=== PATIENT | male | born 1980 | race Caucasian/White ===

== ENCOUNTER 2017-01-14 20:17 | Emergency (ER) | payer OTHER, SELFPAY ==
[2017-01-14] MEDS ORDERED: Acetaminophen 500 MG TAB ONE (20:54)
[2017-01-14] MEDS ORDERED: Ibuprofen 800 MG TAB ONE (20:54)
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
== END 2017-01-14 21:00 | disposition home or self-care (01) ==
LOC: MADERS 20:17
DX: S50.11XA Contusion of right forearm, initial encounter (principal); W19.XXXA Unspecified fall, initial encounter

== ENCOUNTER 2017-09-07 09:07 | Emergency (ER) | payer SELFPAY ==
[2017-09-07] MEDS ORDERED: Cephalexin 500 MG CAP ONE (09:50)
[2017-09-07] MEDS ORDERED: Sulfameth/Trimethoprim DS 800-160mg TAB ONE (09:50)
[2017-09-07] MEDS ORDERED: Adacel (T-DAP) 0.5 ML VIAL ONE (09:52)
--- NOTE | 2017-09-07 10:10 | RAD ---
3 VIEWS RIGHT FOOT: Date: 09/07/17 COMPARISON: None. HISTORY: Pain, no history of trauma. FINDINGS: No displaced fracture or evidence of dislocation seen. No radiopaque foreign body or subcutaneous gas . IMPRESSION: No acute findings. POS: [facility]
== END 2017-09-07 10:10 | disposition home or self-care (01) ==
LOC: MADERS 09:07
DX: L03.115 Cellulitis of right lower limb (principal); B35.3 Tinea pedis; F17.210 Nicotine dependence, cigarettes, uncomplicated
CPT/HCPCS: 36416; 90471; 90715

== ENCOUNTER 2018-01-23 16:14 | Emergency (ER) | payer SELFPAY ==
[2018-01-23] MEDS ORDERED: Ketorolac Tromethamine 30 MG/ML VIAL ONE (16:49)
--- NOTE | 2018-01-23 17:14 | RAD ---
THREE VIEWS OF THE LEFT ANKLE: 01/23/18 COMPARISON: None. HISTORY: Left ankle pain. FINDINGS: Three views of the left ankle shows no evidence of acute fracture or dislocation. Mild diffuse soft t issue swelling is seen. No degenerative changes are present. IMPRESSION: No evidence of acute osseous abnormality. POS: [facility]
== END 2018-01-23 18:12 | disposition short-term general hospital (02) ==
LOC: MADERS 16:14
DX: M79.89 Other specified soft tissue disorders (principal); F17.210 Nicotine dependence, cigarettes, uncomplicated
CPT/HCPCS: 96372; J1885

== ENCOUNTER 2018-10-14 21:56 | Emergency (ER) | payer SELFPAY ==
[2018-10-14] MEDS ORDERED: Sodium Chloride 0.9% 2,000 ML ONE (22:36)
[2018-10-14 22:41] LABS: Lactic Acid 16.7 mmol/L (0.5-2.2)
[2018-10-14 22:44] LABS: Prothrombin Time 13.4 SEC (12.0-14.7)
[2018-10-14] MEDS ORDERED: Cefepime 1 GM VIAL ONE (22:44)
[2018-10-14] MEDS ORDERED: Sodium Chloride 0.9% 100 ML ONE (22:44)
[2018-10-14 22:46] LABS: Hemoglobin 12.6 g/dL (14.0-18.0); Mean Corpuscular Volume 91.5 fL (78.0-98.0); Red Blood Cell (RBC) Count 4.43 mill/uL (4.70-6.10); White Blood Cell (WBC) Count 11.9 thou/uL (4.8-10.8)
[2018-10-14] MEDS ORDERED: Sodium Chloride 0.9% 1,000 ML ONE (22:46)
[2018-10-14 22:47] LABS: #Basophils 0.2 thou/uL (0.0-0.2); #Lymphocytes 4.4 thou/uL (1.20-3.40); #Monocytes 0.7 thou/uL (0.11-0.59); #Neutrophils 5.5 thou/uL (1.40-6.50); %Eosinophils 8.8 % (0.0-10.0); %Monocytes 6.1 % (0.0-10.0); %Neutrophils 46.1 % (42.0-75.0); Mean Corpuscular HGB CONC 31.1 g/dL (32.0-36.0); Mean Corpuscular Hemoglobin 28.5 pg (27.0-31.0); Mean Platelet Volume 6.4 fL (7.4-10.4); Platelet Count 261 thou/uL (130-400); RBC Distribution Width 13.3 % (11.5-14.5)
[2018-10-14 23:03] LABS: ALT (SGPT) 13 U/L (8-55); AST (SGOT) 11 U/L (5-34); Alkaline Phosphatase 84 U/L (40-150); Anion Gap 30 mmol/L (10-20); BUN (Urea Nitrogen) 19 mg/dL (8.9-20.6); Bilirubin, Total 0.3 mg/dL (0.2-1.2); Calc. Creatinine Clearance 0 mL/min (70-130); Calcium 8.3 mg/dL (7.8-10.44); Carbon Dioxide 9 mmol/L (22-29); Chloride 106 mmol/L (98-107); Estimated GFR-MDRD 49; Globulin 2.6 g/dL (2.4-3.5); Glucose 226 mg/dL (70-105); Potassium 3.9 mmol/L (3.5-5.1); Protein, Total 6.6 g/dL (6.0-8.3); Sodium 141 mmol/L (136-145)
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
== END 2018-10-14 22:50 | disposition short-term general hospital (02) ==
LOC: MADERS 21:56
DX: A41.9 Sepsis, unspecified organism (principal); I95.9 Hypotension, unspecified; R00.0 Tachycardia, unspecified; F17.210 Nicotine dependence, cigarettes, uncomplicated
CPT/HCPCS: 36430; 71045; 72170; 80053; 82330; 82435; 82550; 82803; 83605; 84132; 84295; 85025; 85610; 86850; 86900; 86901; 96360; 96374; G0390; J0692; J3490; J7050; P9016

== ENCOUNTER 2019-01-13 14:08 | Emergency (ER) | payer SELFPAY ==
[2019-01-13 15:17] LABS: #Basophils 0.1 thou/uL (0.0-0.2); #Eosinphils 0.6 thou/uL (0.0-0.7); #Lymphocytes 1.2 thou/uL (1.20-3.40); #Monocytes 0.7 thou/uL (0.11-0.59); #Neutrophils 5.8 thou/uL (1.40-6.50); %Basophils 1.6 % (0.0-1.0); %Eosinophils 7.3 % (0.0-10.0); %Lymphocytes 14.5 % (21.0-51.0); %Monocytes 8.3 % (0.0-10.0); %Neutrophils 68.3 % (42.0-75.0); Hemoglobin 12.6 g/dL (14.0-18.0); Mean Corpuscular HGB CONC 31.3 g/dL (32.0-36.0); Mean Corpuscular Hemoglobin 28.6 pg (27.0-31.0); Mean Corpuscular Volume 91.3 fL (78.0-98.0); Mean Platelet Volume 6.9 fL (7.4-10.4); Platelet Count 218 thou/uL (130-400); RBC Distribution Width 12.9 % (11.5-14.5); Red Blood Cell (RBC) Count 4.42 mill/uL (4.70-6.10); White Blood Cell (WBC) Count 8.5 thou/uL (4.8-10.8)
[2019-01-13 15:34] LABS: Alcohol Less than 10 mg/dL (Less than 10); CRP (Inflammatory) 0.86 mg/dL (= or < 0.5)
[2019-01-13 15:36] LABS: ALT (SGPT) 20 U/L (8-55); AST (SGOT) 13 U/L (5-34); Albumin 4.2 g/dL (3.5-5.0); Alkaline Phosphatase 71 U/L (40-110); Anion Gap 14 mmol/L (10-20); BUN (Urea Nitrogen) 18 mg/dL (8.9-20.6); Bilirubin, Total 0.8 mg/dL (0.2-1.2); Calc. Creatinine Clearance 0 mL/min (70-130); Calcium 9.2 mg/dL (7.8-10.44); Carbon Dioxide 27 mmol/L (22-29); Chloride 106 mmol/L (98-107); Estimated GFR-MDRD 89; Globulin 2.4 g/dL (2.4-3.5); Glucose 101 mg/dL (70-105); Potassium 3.8 mmol/L (3.5-5.1); Protein, Total 6.6 g/dL (6.0-8.3); Sodium 143 mmol/L (136-145)
[2019-01-13] MEDS ORDERED: Sodium Chloride 0.9% 1,000 ML ONE (15:57)
[2019-01-13] MEDS ORDERED: Pantoprazole 40 MG VIAL ONE (15:57)
[2019-01-13 16:30] LABS: Amphetamine Not Detected (NotDetected); Barbiturates Screen Not Detected (NotDetected); Benzodiazepine Screen Not Detected (NotDetected); Cocaine Metabolite Screen Not Detected (NotDetected); Medtox Control Line Valid? VALID (VALID); Methadone Not Detected (NotDetected); Methamphetamine Not Detected (NotDetected); Opiate Screen Not Detected (NotDetected); Oxycodone Screen Not Detected (NotDetected); Phencyclidine (PCP) Not Detected (NotDetected); THC/Cannabinoid Screen Detected (NotDetected); Tricyclic Screen Not Detected (NotDetected)
[2019-01-13 16:42] LABS: Lipase Less than 4 U/L (8-78)
[2019-01-13] MEDS ORDERED: Ciprofloxacin 500 MG TAB ONE (16:49)
[2019-01-13 17:44] LABS: Bilirubin Negative (Negative); Blood, Urine Negative (Negative); Clarity Clear (Clear); Glucose, Urine (Dipstick) Negative (Negative); Leukocyte Negative (Negative); Nitrite Negative (Negative); Protein, Urine (Dipstick) Negative (Neg-Trace); Urobilinogen 0.2 mg/dL (Less than 2)
== END 2019-01-13 16:57 | disposition home or self-care (01) ==
LOC: MADERS 14:08
DX: E86.0 Dehydration (principal); A09 Infectious gastroenteritis and colitis, unspecified; F14.10 Cocaine abuse, uncomplicated; Z71.6 Tobacco abuse counseling; F17.210 Nicotine dependence, cigarettes, uncomplicated
CPT/HCPCS: 36415; 80053; 80306; 80307; 81003; 82150; 83690; 85025; 86140; 96361; 96374; 99406; C9113; J7050

== ENCOUNTER 2020-11-28 02:23 | Emergency (ER) | payer SELFPAY ==
[2020-11-28 04:50] LABS: Bilirubin Negative (Negative); Blood, Urine Small (Negative); Clarity Cloudy (Clear); Glucose, Urine (Dipstick) Negative (Negative); Ketone, Urine Negative (Negative); Leukocyte Small (Negative); Nitrite Positive (Negative); Protein, Urine (Dipstick) Trace mg/dL (Neg-Trace); Urobilinogen 0.2 mg/dL (Less than 2); pH, Urine 5.5 (5.0-9.0)
[2020-11-28 04:52] LABS: Specific Gravity, Urine 1.028 (1.002-1.036)
[2020-11-28 05:00] LABS: Bacteria/HPF Rare-Few HPF (None Seen); Mucous/LPF 2+ LPF (<2+); RBC/HPF 0-3 HPF (0-3); Squamous Epithelial 0-3 HPF (0-3); Transitional Epithelial 0-3 HPF (None Seen); WBC/HPF Greater Than 50 HPF (0-3)
[2020-11-28] MEDS ORDERED: Lidocaine 1% 20 ML MDV ONE ×2 (05:56→05:58)
[2020-11-28] MEDS ORDERED: cefTRIAXone\\ROCEPHIN 1 GM VIAL ONE (05:56)
== END 2020-11-28 06:28 | disposition home or self-care (01) ==
LOC: MADERS 02:23
DX: N30.00 Acute cystitis without hematuria (principal); R33.9 Retention of urine, unspecified; F17.290 Nicotine dependence, other tobacco product, uncomplicated
CPT/HCPCS: 81003; 81015; 96372; 99283; J0696

== ENCOUNTER 2020-12-29 20:30 | Emergency (ER) | payer SELFPAY ==
[2020-12-29] MEDS ORDERED: Cephalexin 500 MG CAP ONE (20:42)
== END 2020-12-29 20:49 | disposition home or self-care (01) ==
LOC: MADERS 20:30
DX: L03.011 Cellulitis of right finger (principal); F17.290 Nicotine dependence, other tobacco product, uncomplicated
CPT/HCPCS: 99283

== ENCOUNTER 2021-01-19 18:17 | Emergency (ER) | payer SELFPAY ==
[2021-01-19] MEDS ORDERED: Cephalexin 500 MG CAP ONE (18:50)
== END 2021-01-19 18:58 | disposition home or self-care (01) ==
LOC: MADERS 18:17
DX: L03.011 Cellulitis of right finger (principal); F17.290 Nicotine dependence, other tobacco product, uncomplicated
CPT/HCPCS: 99283

== ENCOUNTER 2021-04-09 07:26 | Emergency (ER) | payer SELFPAY ==
[2021-04-09] MEDS ORDERED: Lidocaine 1%/Epinephrine 1:100K 10 ML VIAL ONE (07:51)
== END 2021-04-09 09:05 | disposition home or self-care (01) ==
LOC: MADERS 07:26
DX: H60.01 Abscess of right external ear (principal); F17.210 Nicotine dependence, cigarettes, uncomplicated
CPT/HCPCS: 10060